=== PATIENT | female | born 1975 | race Caucasian/White ===

== ENCOUNTER 2024-08-21 16:06 | Outpatient (REF) | payer BC, SELFPAY ==
[2024-08-21 18:13] LABS: Bilirubin Negative (Negative); Blood Negative (Negative); Clarity Sl Cloudy (Clear); Glucose Negative (Negative); Ketones Negative (Negative); Leukocyte Esterase Negative (Negative); Nitrite Negative (Negative); Urobilinogen 0.2 mg/dL (Up to 0.2)
== END 2024-08-21 16:07 | disposition home or self-care (01) ==
LOC: LBN 16:06
PROVIDERS: Visit Provider Naturopath
DX: R35.0 Frequency of micturition (principal)
CPT/HCPCS: 81003